=== PATIENT | male | born 1960 | race African-American/Black ===

== ENCOUNTER 2020-10-31 08:23 | Emergency (ER) | payer SELFPAY ==
[~2020-10-31] VITALS: Ht 185.4 cm; Wt 147.2 kg
[2020-10-31] MEDS ORDERED: IV NORMAL SALINE 1,000ML 1,000 ML IV ONE (08:45)
[2020-10-31] MEDS ORDERED: LOSARTAN 25 MG TABLET. PO STA (08:45)
--- NOTE | 2020-10-31 08:50 | PHYS DOC ---
General Adult EDM: Chief Complaint: HYPERTENSION HPI: HPI: 60-year-old male presents with elevated blood pressure. Patient has had hypertension for some time. He is on multiple medications. He has been taking his medications as prescribed. He tells me that for the last couple weeks he has noticed his blood pressure being higher. He has had some episodes in the upper 180s over 105. He occasionally gets headache when it is that high. He describes it as a pressure or throbbing. His current blood pressure 165/99. He cannot get into his primary care physician to the first of the month and he does not want to let his blood pressure stay this high. Patient tells me that he has been eating and drinking normally. He is on a diet and is not believe he has a lot of sodium intake. Does not drink very much caffeine. He has had increased stress lately with a recent divorce. He further reports decreased urination despite being on hydrochlorothiazide. Denies fever or chills. He has no other complaints at this time. Review of Systems: Review of Systems: Constitutional: Denies fever or chills Eyes: Denies change in visual acuity HENT: Denies nasal congestion or sore throat Respiratory: Denies cough or shortness of breath Cardiovascular: Elevated blood pressure. Denies chest pain or edema GI: Denies abdominal pain, nausea, vomiting, bloody stools or diarrhea : Denies dysuria Musculoskeletal: Denies back pain or joint pain Integument: Denies rash Neurologic: Headache. Denies focal weakness or sensory changes Endocrine: Denies polyuria or polydipsia Lymphatic: Denies swollen glands Psychiatric: Denies depression or anxiety Physical Exam: PE: Constitutional: Well developed, well nourished, morbidly obese, no acute distress, non-toxic appearance. [] HENT: Normocephalic, atraumatic, bilateral external ears normal, oropharynx moist, no oral exudates, nose normal. [] Eyes: PERRLA, EOMI, conjunctiva normal, no discharge. [] Neck: Normal range of motion, no tenderness, supple, no stridor. [] Cardiovascular: Heart rate 64, regular rhythm, no murmur [] Lungs & Thorax: Bilateral breath sounds clear to auscultation [] Abdomen: Bowel sounds normal, soft, no tenderness, no masses, no pulsatile masses. [] Skin: Warm, dry, no erythema, no rash. [] Back: No tenderness, no CVA tenderness. [] Extremities: No tenderness, no cyanosis, no clubbing, ROM intact, no edema. [] Neurologic: Alert and oriented X 3, normal motor function, normal sensory function, no focal deficits noted. [] Psychologic: Affect normal, judgement normal, mood concerned. [] EKG: EKG: Sinus rhythm, rate 64, normal axis, no ST elevations or depressions. [] Radiology/Procedures: Radiology/Procedures: [] Impressions: EXAM: Chest, single view. HISTORY: Hypertension. COMPARISON: None. FINDINGS: A frontal view of the chest obtained. There is no infiltrate, pleural effusion or pneumothorax. The heart is normal in size. There is suspected right infrahilar atelectasis or scarring. IMPRESSION: No acute pulmonary finding. Electronically signed by: Sofía Tom MD (10/31/2020 9:12 AM) [id number] DICTATED AND SIGNED BY: SOFÍA TOM MD DATE: 10/31/20910 CC: AIYANA LYNN DO; NEELAM TIDWELL CO ~MTH0 0 Heart Score: C/O Chest Pain: No Risk Factors: Risk Factors: DM, Current or recent (<one month) smoker, HTN, HLP, family hist ory of CAD, obesity. Risk Scores: Score 0 - 3: 2.5% MACE over next 6 weeks - Discharge Home Score 4 - 6: 20.3% MACE over next 6 weeks - Admit for Clinical Observation Score 7 - 10: 72.7% MACE over next 6 weeks - Early Invasive Strategies Course & Med Decision Making: Course & Med Decision Making Pertinent Labs and Imaging studies reviewed. (See chart for details) The patient's labs are unremarkable. His chest x-ray is negative for acute findings. His urine is trace protein, but no other abnormalities. I believe this is just the patient's blood pressure being out of control. I do not see a new cause. We have given him a second dose of losartan in the ED. This was followed by 0.2 of clonidine and finally 10 of hydralazine. Hydralazine seems to have pressure a bit. Since he cannot get into his primary doctor for least the next week, I will discharge him with a prescription for hydralazine 10 mg 3 times daily as needed. He is stable for discharge at this time. [] Robertoon Disclaimer: Jami Disclaimer: This electronic medical record was generated, in whole or in part, using a voice recognition dictation system. Departure Departure: Impression: Primary Impression: Hypertension Qualified Codes: I10 - Essential (primary) hypertension Disposition: HOME / SELF CARE / HOMELESS Condition: STABLE Referrals: NEELAM TIDWELL (PCP) Patient Instructions: Hypertension, [id number] Scripts Hydralazine Hcl (HYDRALAZINE HCL) 10 Mg Tablet 1 TAB PO TID PRN for ELEVATED BP, SEE COMMENTS, #30 TAB 3 Refills for BP greater than 160/90 Prov: AIYANA LYNN DO 10/31/20 AIYANA LYNN DO October 31, 2020 08:50
[2020-10-31 09:10] LABS: BASO # 0.1 x10^3/uL (0.0-0.2); BASO % 2 % (0-3); EOS # 0.4 x10^3/uL (0.0-0.7); EOS % 7 % (0-3); HEMATOCRIT 48.1 % (39.0-53.0); LYMPH % 39 % (24-48); MEAN CORPUSCULAR HEMOGLOBIN 32 pg (25-35); MEAN CORPUSCULAR HGB CONC 33 g/dL (31-37); MEAN CORPUSCULAR VOLUME 94 fL (79-100); MONO # 0.5 x10^3/uL (0.0-1.1); MONO % 9 % (0-9); NEUT # 2.2 x10^3uL (1.8-7.7); NEUT % 43 % (31-73); PLATELET COUNT 211 x10^3/uL (140-400); RED BLOOD COUNT 5.09 x10^6/uL (4.30-5.70); RED CELL DISTRIBUTION WIDTH 16.9 % (11.5-14.5); WHITE BLOOD COUNT 5.2 x10^3/uL (4.0-11.0)
--- NOTE | 2020-10-31 09:14 | RAD ---
EXAM: Chest, single view. HISTORY: Hypertension. COMPARISON: None. FINDINGS: A frontal view of the chest obtained. There is no infiltrate, pleural effusion or pneumotho rax. The heart is normal in size. There is suspected right infrahilar atelectasis or scarring. IMPRESSION: No acute pulmonary finding. Electronically signed by: Sofía Tom MD (10/31/2020 9:12 AM) [id number]
[2020-10-31 09:57] LABS: BILIRUBIN,URINE NEG (NEG); CLARITY,URINE CLEAR; COLOR,URINE YELLOW; GLUCOSE,URINE NEG (NEG); NITRITE,URINE NEG (NEG)
[2020-10-31 10:04] LABS: BACTERIA,URINE 0 /HPF (0-FEW); WBC,URINE OCC /HPF (0-4)
[2020-10-31 10:05] LABS: HYALINE CASTS, URINE OCC /HPF; SQUAMOUS EPITHELIAL CELL,UR FEW /LPF
[2020-10-31] MEDS ORDERED: cloNIDine HCL 0.1 MG TABLET ONE (10:13)
[2020-10-31 10:15] LABS: HEMOGLOBIN ISTAT 17.7 gm/dL; POTASSIUM ISTAT 4.2 mmol/L (3.5-5.0)
[2020-10-31] MEDS ORDERED: cloNIDine HCL 0.1 MG TABLET PO ONE (10:15)
[2020-10-31] MEDS ORDERED: hydrALAZINE 20 MG/ML VIAL. IV ONE (11:15)
[2020-10-31] MEDS ORDERED: HYDR-2867 PO (11:50)
[2020-10-31 11:57] VITALS: BP 160/72
--- NOTE | 2020-10-31 13:36 | EKG ---
[address] [address] Test Date: 2020-10-31 Test Time: 08:34:13 Pat Name: HAILEY GUNTER Department: Room: Gender: M Clinical Social Worker: LACIE : 1960 Requested By: AIYANA LYNN Order Number: [id number] Reading MD: Ray Doe MD Measurements Intervals [place] Rate: 64 P: 39 TN: 158 QRS: 15 QRSD: 76 T: -29 QT: 402 QTc: 414 Interpretive Statements SINUS RHYTHM Electronically Signed On 10-31-2020 13:36:15 CDT by Ray Doe MD
== END 2020-10-31 12:06 | disposition home or self-care (01) ==
LOC: ER 08:23
DX: I10 Essential (primary) hypertension (principal)
CPT/HCPCS: 36415; 71045; 80047; 81001; 84484; 85025; 93005; 96361; 96374; 99285; J0360; J7030

== ENCOUNTER 2021-05-29 12:31 | Inpatient (IN) | payer OTHER ==
[~2021-05-29] VITALS: Ht 185.4 cm; Wt 149.0 kg
[~2021-05-29 12:31] MED LIST: HYDR-2867 PO
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
[2021-05-29] MEDS ORDERED: ASPIRIN CHEWABLE 81 MG TABLET. PO ONE (13:00)
[2021-05-29] MEDS ORDERED: NITROGLYCERIN SUBLINGUAL 0.4 MG BOTTLE OF 25. SL PRN (13:00)
--- NOTE | 2021-05-29 13:05 | EKG ---
[address] [address] Test Date: 2021-05-29 Test Time: 12:38:54 Pat Name: HAILEY GUNTER Department: Room: Gender: M Community Service Director: LACIE : 1960 Requested By: ROJELIO GRIFFIN Order Number: [id number] Reading MD: Ray Doe MD Measurements Intervals [place] Rate: 87 P: 180 AR: 92 QRS: 13 QRSD: 72 T: 16 QT: 334 QTc: 402 Interpretive Statements SINUS RHYTHM Electronically Signed On 06-05-2021 15:26:28 CHILD PSYCHIATRIST by Ray Doe MD
[2021-05-29 13:22] LABS: BASO # 0.1 x10^3/uL (0.0-0.2); BASO % 1 % (0-3); EOS # 0.2 x10^3/uL (0.0-0.7); EOS % 4 % (0-3); HEMATOCRIT 46.4 % (39.0-53.0); HEMOGLOBIN 15.2 g/dL (13.0-17.5); LYMPH # 2.1 x10^3/uL (1.0-4.8); LYMPH % 32 % (24-48); MEAN CORPUSCULAR HEMOGLOBIN 31 pg (25-35); MEAN CORPUSCULAR HGB CONC 33 g/dL (31-37); MEAN CORPUSCULAR VOLUME 94 fL (79-100); MONO # 0.6 x10^3/uL (0.0-1.1); MONO % 9 % (0-9); NEUT # 3.7 x10^3uL (1.8-7.7); NEUT % 54 % (31-73); PLATELET COUNT 253 x10^3/uL (140-400); RED BLOOD COUNT 4.93 x10^6/uL (4.30-5.70); RED CELL DISTRIBUTION WIDTH 16.3 % (11.5-14.5); WHITE BLOOD COUNT 6.7 x10^3/uL (4.0-11.0)
[2021-05-29 13:34] LABS: CALCIUM 9.8 mg/dL (8.5-10.1); CREATININE 0.9 mg/dL (0.7-1.3); GFR 103.1; POTASSIUM 4.5 mmol/L (3.5-5.1)
[2021-05-29 13:40] LABS: ALBUMIN 3.8 g/dL (3.4-5.0); ALBUMIN/GLOBULIN RATIO 1.1 (1.0-1.7); TOTAL BILIRUBIN 0.3 mg/dL (0.2-1.0); TOTAL PROTEIN 7.2 g/dL (6.4-8.2)
--- NOTE | 2021-05-29 13:42 | RAD ---
EXAM: Chest, single view. HISTORY: Chest pain. COMPARISON: 10/31/2020. FINDINGS: A frontal view of the chest is obtained. There is increased bilateral upper lobe interstiti al opacity. There is no consolidation, pleural effusion or pneumothorax. The heart is normal in size. IMPRESSION: Bilateral lower lobe interstitial infiltrate or chronic interstitial changes. Electronically signed by: Sofía Tom MD (05/29/2021 1:40 PM) [id number]
[2021-05-29] MEDS: IV NORMAL SALINE 1,000ML 1,000 ML IV SCH (14:00)
[2021-05-29] MEDS ORDERED: MORPHINE SULFATE 4 MG/ML DISP.SYRIN. IVP PRN (14:00)
[2021-05-29] MEDS ORDERED: AZITHROMYCIN 500 MG in IV NORMAL SALINE 250ML 250 ML IV ONE (14:00)
[2021-05-29] MEDS ORDERED: IV NORMAL SALINE 250ML 250 ML ONE (14:42)
[2021-05-29] MEDS ORDERED: cefTRIAXone SODIUM 1 GM VIAL ONE (14:42)
[2021-05-29] MEDS ORDERED: IV NORMAL SALINE 50ML 50 ML ONE (14:42)
[2021-05-29] MEDS ORDERED: AZITHROMYCIN 500 MG VIAL. IV ONE (14:42)
--- NOTE | 2021-05-29 14:57 | EKG ---
[address] [address] Test Date: 2021-05-29 Test Time: 14:46:57 Pat Name: HAILEY GUNTER Department: Room: Gender: M Front End Driver: LACIE : 1960 Requested By: ROJELIO GRIFFIN Order Number: [id number] Reading MD: Ray Doe MD Measurements Intervals [place] Rate: 77 P: 38 AR: 160 QRS: 10 QRSD: 72 T: 14 QT: 364 QTc: 414 Interpretive Statements SINUS RHYTHM Electronically Signed On 06-05-2021 15:24:55 FLOORWALKER by Ray Doe MD
--- NOTE | 2021-05-29 16:38 | HP ---
DATE OF SERVICE: 05/29/2021 ADMIT DATE: 05/29/2021 HISTORY OF PRESENT ILLNESS: The patient is a 61-year-old -Iranian male patient who presented to the Emergency Room with a complaint of left-sided chest pain that started 5 days ago. The patient describes the pain as an ache and rated about 7/10 in severity. The pain does not radiate, not alleviated or aggravated by anything, no treatment prior to arrival. He reports the pain started after he went to apply for a new job, had to have a physical with [employer]. He stated that during physical he had to lift a 50-pound weight over his head on the floor and he became short of breath and then started experiencing chest pain. He is still reporting shortness of breath at this time. On arrival, he denied any nausea, vomiting or dizziness. He does have a history of hypertension, for which he takes metoprolol and hydrochlorothiazide. He was extensively investigated in the Emergency Room and has had an EKG done, which showed he was in sinus rhythm at a rate of 87, corrected QT interval of 402, no ST-segment elevation. His chest x-ray showed that there is increased bilateral upper lobe interstitial opacity. There is no consolidation, pleural effusion, or pneumothorax. The heart is normal in size. LABORATORY DATA: His lab work showed a white cell count of 6700, hemoglobin 15, hematocrit 46, MCV 94 and platelet count of 253,000 with normal manual differential. Chemistry showed a serum sodium of 140, potassium 4.5, his chloride was 101, bicarbonate was 31, anion gap of 8, BUN 9, creatinine 0.9. Estimated GFR was 103 mL per minute. His glucose was 100, calcium was 9.8. Total bilirubin, AST, ALT, alkaline phosphatase were normal. Troponin I high sensitivity was 10. Total protein was 7.2, albumin was 3.8. ASSESSMENT AND PLAN: In summary, this is a 61-year-old -Iranian male patient who presented with atypical chest pain. He was also admitted with probably community-acquired pneumonia. He has multiple risk factors for coronary artery disease including hypertension, cigarettes and male gender. We will do two more sets of cardiac enzymes, we will check his fasting lipid profile, consult the account support specialist tomorrow and decide on further management accordingly. We will also continue with antibiotics. RYAN/ARV/GIO DR: Mariam TID: [id number]
[2021-05-29 22:30] VITALS: BP 159/94
[2021-05-29] MEDS ORDERED: ALBU2.5V8 IH (23:44)
[2021-05-29] MEDS ORDERED: HYDR12.572 PO (23:44)
[2021-05-29] MEDS ORDERED: METO-247 PO (23:44)
[2021-05-29] MEDS ORDERED: CLON1TAB PO (23:44)
[2021-05-30 04:58] VITALS: BP 139/85
[2021-05-30 06:27] LABS: BASO % 1 % (0-3); EOS # 0.2 x10^3/uL (0.0-0.7); EOS % 4 % (0-3); HEMATOCRIT 45.1 % (39.0-53.0); HEMOGLOBIN 14.9 g/dL (13.0-17.5); LYMPH # 2.6 x10^3/uL (1.0-4.8); LYMPH % 44 % (24-48); MEAN CORPUSCULAR HEMOGLOBIN 31 pg (25-35); MEAN CORPUSCULAR HGB CONC 33 g/dL (31-37); MEAN CORPUSCULAR VOLUME 95 fL (79-100); MONO # 0.5 x10^3/uL (0.0-1.1); MONO % 9 % (0-9); NEUT # 2.5 x10^3uL (1.8-7.7); NEUT % 42 % (31-73); PLATELET COUNT 206 x10^3/uL (140-400); RED BLOOD COUNT 4.75 x10^6/uL (4.30-5.70); RED CELL DISTRIBUTION WIDTH 15.8 % (11.5-14.5); WHITE BLOOD COUNT 5.9 x10^3/uL (4.0-11.0)
[2021-05-30 06:41] LABS: ALBUMIN 3.1 g/dL (3.4-5.0); CALCIUM 8.7 mg/dL (8.5-10.1); CREATININE 0.9 mg/dL (0.7-1.3); GFR 103.1; POTASSIUM 3.7 mmol/L (3.5-5.1); TOTAL BILIRUBIN 0.3 mg/dL (0.2-1.0); TOTAL PROTEIN 6.3 g/dL (6.4-8.2)
[2021-05-30] MEDS: IV NORMAL SALINE 1,000ML 1,000 ML IV SCH ×2 (07:57)
--- NOTE | 2021-05-30 08:59 | PDOC2 ---
JHONY NETTLES [place] 05/30/21 0859: CARDIAC CONSULT DATE OF CONSULT DOS: DATE: 05/30/21 TIME: 08:50 REASON FOR CONSULT Reason for Consult Chest pain REFERRING PHYSICIAN Referring Physician Dr. Duckworth SOURCE Source: Chart review, Patient HPI History of Present Illness This is a 61 yo male who presented secondary to chest pain. Patient reports undergoing agility test for job for which he applied. 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 Thinks he may have pulled a muscle in his left chest. Reports intermittent pain in his left chest. Is worse with certain movements. No associated dizziness, diaphoresis, or palpitations. Reports having stress test many years ago. No recent cardiac workup. AMI ruled out. PAST MEDICAL HISTORY Cardiovascular: HTN GI: GERD Psych: Anxiety PAST SURGICAL HISTORY Past Surgical History: No pertinent history FAMILY HISTORY Family History: Hypertension SOCIAL HISTORY Smoke: <1 pack per day ALCOHOL: none Drugs: None Lives: with Family CURRENT MEDICATIONS Current Medications Current Medications Aspirin (Aspirin Chewable) 324 mg 1X ONCE PO Last administered on 05/29/21at 13:11; Start 05/29/21 at 13:00; Stop 05/29/21 at 13:02; Status DC Nitroglycerin (Nitrostat) 0.4 mg PRN Q5MIN PRN SL CHEST PAIN Last administered on 05/29/21at 13:11; Start 05/29/21 at 13:00 Morphine Sulfate (Morphine 4mg Syringe) 4 mg PRN Q2HR PRN IVP PAIN; Start 05/29/21 at 14:00; Stop 05/30/21 at 13:59 Sodium Chloride 1,000 ml @ 100 mls/hr Q10H IV Last administered on 05/30/21at 07:57; Start 05/29/21 at 14:00; Stop 05/30/21 at 13:59 Ceftriaxone Sodium 1 gm/ Sodium Chloride 50 ml @ 100 mls/hr 1X ONCE IV Last administered on 05/29/21at 14:55; Start 05/29/21 at 14:00; Stop 05/29/21 at 14:29; Status DC Azithromycin 500 mg/Sodium Chloride 250 ml @ 250 mls/hr 1X ONCE IV Last administered on 05/29/21at 16:05; Start 05/29/21 at 14:00; Stop 05/29/21 at 14:59; Status DC Sodium Chloride 250 ml @ As Directed STK-MED ONCE .ROUTE ; Start 05/29/21 at 14:42; Stop 05/29/21 at 14:42; Status DC Sodium Chloride 50 ml @ As Directed STK-MED ONCE .ROUTE ; Start 05/29/21 at 14:42; Stop 05/29/21 at 14:42; Status DC Azithromycin (Zithromax) 500 mg STK-MED ONCE IV ; Start 05/29/21 at 14:42; Stop 05/29/21 at 14:42; Status DC Ceftriaxone Sodium (Rocephin) 1 gm STK-MED ONCE .ROUTE ; Start 05/29/21 at 14:42; Stop 05/29/21 at 14:42; Status DC Azithromycin 500 mg/Sodium Chloride 250 ml @ 250 mls/hr Q24H IV ; Start 05/30/21 at 16:00 Ceftriaxone Sodium 1 gm/ Sodium Chloride 50 ml @ 100 mls/hr Q24H IV ; Start 05/30/21 at 14:00 Lactobacillus Rhamnosus (Culturelle) 1 cap BID PO Last administered on 05/30/21at 07:52; Start 05/30/21 at 09:00 Active Scripts Active Reported Proair Hfa Inhaler (Albuterol Sulfate) 8.5 Gm Hfa.aer.ad 2 Puff IH PRN Q4-6HRS PRN 21 Days Klonopin (Clonazepam) 1 Mg Tablet 1 Tab PO PRN Q8HRS PRN Metoprolol Succinate ( Xl ) (Metoprolol Succinate) 100 Mg Tab.er.24h 1 Tab PO DAILY Hydrochlorothiazide Capsule (Hydrochlorothiazide) 12.5 Mg Capsule 25 Mg PO DAILY ALLERGIES Allergies: Coded Allergies: No Known Drug Allergies (Unverified , 10/31/20) ROS Review of Systems 14 point ROS conducted with pertinent positives noted above in hPI PHYSICAL EXAM General: Alert, Oriented X3, Cooperative, No acute distress HEENT: Atraumatic Lungs: Clear to auscultation Heart: Regular rate Abdomen: Soft, Other (obese) Extremities: No edema Neuro: Sensation intact Psych/Mental Status: Mood NL MUSCULOSKELETAL: Osteoarthritic changes both hands VITALS Vital Signs Vital Signs Date Time Temp Pulse Resp B/P (MAP) Pulse Ox O2 Delivery O2 Flow Rate FiO2 05/30/21 04:58 96.9 64 18 139/85 (103) 100 Room Air LABS LABS Laboratory Tests Test 05/29/21 13:07 05/29/21 14:33 05/29/21 15:26 05/29/21 18:58 White Blood Count 6.7 x10^3/uL (4.0-11.0) Red Blood Count 4.93 x10^6/uL (4.30-5.70) Hemoglobin 15.2 g/dL (13.0-17.5) Hematocrit 46.4 % (39.0-53.0) Mean Corpuscular Volume 94 fL (79-100) Mean Corpuscular Hemoglobin 31 pg (25-35) Mean Corpuscular Hemoglobin Concent 33 g/dL (31-37) Red Cell Distribution Width 16.3 % (11.5-14.5) Platelet Count 253 x10^3/uL (140-400) Neutrophils (%) (Auto) 54 % (31-73) Lymphocytes (%) (Auto) 32 % (24-48) Monocytes (%) (Auto) 9 % (0-9) Eosinophils (%) (Auto) 4 % (0-3) Basophils (%) (Auto) 1 % (0-3) Neutrophils # (Auto) 3.7 x10^3uL (1.8-7.7) Lymphocytes # (Auto) 2.1 x10^3/uL (1.0-4.8) Monocytes # (Auto) 0.6 x10^3/uL (0.0-1.1) Eosinophils # (Auto) 0.2 x10^3/uL (0.0-0.7) Basophils # (Auto) 0.1 x10^3/uL (0.0-0.2) Sodium Level 140 mmol/L (136-145) Potassium Level 4.5 mmol/L (3.5-5.1) Chloride Level 101 mmol/L (98-107) Carbon Dioxide Level 31 mmol/L (21-32) Anion Gap 8 (6-14) Blood Urea Nitrogen 9 mg/dL (8-26) Creatinine 0.9 mg/dL (0.7-1.3) Estimated GFR (Cockcroft-Gault) 103.1 BUN/Creatinine Ratio 10 (6-20) Glucose Level 100 mg/dL (70-99) Calcium Level 9.8 mg/dL (8.5-10.1) Total Bilirubin 0.3 mg/dL (0.2-1.0) Aspartate Amino Transf (AST/SGOT) 21 U/L (15-37) Alanine Aminotransferase (ALT/SGPT) 29 U/L (16-63) Alkaline Phosphatase 92 U/L (46-116) Troponin I High Sensitivity 10 ng/L (4-75) 7 ng/L (4-75) 7 ng/L (4-75) Total Protein 7.2 g/dL (6.4-8.2) Albumin 3.8 g/dL (3.4-5.0) Albumin/Globulin Ratio 1.1 (1.0-1.7) Coronavirus (COVID-19)(PCR) Not detected (NOT DETECTD) SARS-CoV-2 Antigen (Rapid) Negative (NEGATIVE) Test 05/30/21 05:59 White Blood Count 5.9 x10^3/uL (4.0-11.0) Red Blood Count 4.75 x10^6/uL (4.30-5.70) Hemoglobin 14.9 g/dL (13.0-17.5) Hematocrit 45.1 % (39.0-53.0) Mean Corpuscular Volume 95 fL (79-100) Mean Corpuscular Hemoglobin 31 pg (25-35) Mean Corpuscular Hemoglobin Concent 33 g/dL (31-37) Red Cell Distribution Width 15.8 % (11.5-14.5) Platelet Count 206 x10^3/uL (140-400) Neutrophils (%) (Auto) 42 % (31-73) Lymphocytes (%) (Auto) 44 % (24-48) Monocytes (%) (Auto) 9 % (0-9) Eosinophils (%) (Auto) 4 % (0-3) Basophils (%) (Auto) 1 % (0-3) Neutrophils # (Auto) 2.5 x10^3uL (1.8-7.7) Lymphocytes # (Auto) 2.6 x10^3/uL (1.0-4.8) Monocytes # (Auto) 0.5 x10^3/uL (0.0-1.1) Eosinophils # (Auto) 0.2 x10^3/uL (0.0-0.7) Basophils # (Auto) 0.0 x10^3/uL (0.0-0.2) Sodium Level 143 mmol/L (136-145) Potassium Level 3.7 mmol/L (3.5-5.1) Chloride Level 105 mmol/L (98-107) Carbon Dioxide Level 31 mmol/L (21-32) Anion Gap 7 (6-14) Blood Urea Nitrogen 12 mg/dL (8-26) Creatinine 0.9 mg/dL (0.7-1.3) Estimated GFR (Cockcroft-Gault) 103.1 BUN/Creatinine Ratio 13 (6-20) Glucose Level 95 mg/dL (70-99) Calcium Level 8.7 mg/dL (8.5-10.1) Total Bilirubin 0.3 mg/dL (0.2-1.0) Aspartate Amino Transf (AST/SGOT) 11 U/L (15-37) Alanine Aminotransferase (ALT/SGPT) 20 U/L (16-63) Alkaline Phosphatase 78 U/L (46-116) Total Protein 6.3 g/dL (6.4-8.2) Albumin 3.1 g/dL (3.4-5.0) Albumin/Globulin Ratio 1.0 (1.0-1.7) ASSESSMENT/PLAN Assessment/Plan 1. Chest pain, atypical. AMI ruled out. EKG without significant acute changes. Most probably MSK 2. Hypertension; controlled 3. Tobaccoism; discussed/encouraged cessatino Recommendations ASA Lipids Will arrange outpatient ischemic evaluation with stress test Follow up in our office as arranged DIANA BATES MD 05/31/21 0522: CARDIAC CONSULT ASSESSMENT/PLAN Assessment/Plan Patient seen and examined. Agree with EEO OFFICER's assessment and plan. CP with atypical features NE ruled out Plan echo and stress test as outpatient Thank you for your consultation JHONY NETTLES APRN May 30, 2021 08:59 DIANA BATES MD May 31, 2021 05:22
[2021-05-30] MEDS ORDERED: LACTOBACILLUS RHAMNOSUS GG 1 CAPSULE. PO SCH (09:00)
[2021-05-30] MEDS ORDERED: ASPIRIN ENTERIC COATED 81 MG TABLET.DR. PO SCH (09:00)
[2021-05-30 09:43] VITALS: BP 159/81
[2021-05-30] MEDS ORDERED: ALBUTEROL SULFATE 2.5 MG/3 ML NEBU. IH PRN (10:00)
[2021-05-30] MEDS ORDERED: clonazePAM 1 MG TABLET PO PRN (10:00)
[2021-05-30] MEDS ORDERED: METOPROLOL SUCC 24HR ER 50 MG TAB.ER.24H. PO SCH (10:15)
[2021-05-30] MEDS ORDERED: hydroCHLOROthiazide 12.5 MG CAPSULE PO SCH (10:15)
[2021-05-30 10:20] VITALS: BP 159/81
[2021-05-30] MEDS ORDERED: ASPI-889 PO (13:13)
[2021-05-30] MEDS ORDERED: AZIT250T PO (13:18)
[2021-05-30] MEDS ORDERED: CEFD300C PO (13:18)
--- NOTE | 2021-05-30 13:44 | DS ---
HOSPITAL COURSE: The patient is a 61-year-old male patient who came in yesterday complaining of left-sided chest pain. He was evaluated in the Emergency Room, has had lab work and EKG as well as chest x-ray. The EKG was unremarkable. He has 3 sets of cardiac enzymes that ruled out myocardial infarction, was treated with azithromycin and ceftriaxone for possible bilateral lower lobe interstitial infiltrate or chronic interstitial changes. He was seen by the Cardiology team and the plan is to discharge him home with arrangement for outpatient ischemic workup. PHYSICAL EXAMINATION: GENERAL: When I saw him this morning, he was resting slightly propped up in bed, in no apparent respiratory distress. No pallor, jaundice, cyanosis or thyromegaly. No jugular venous distention. No lower limb edema. VITAL SIGNS: His heart rate was 86, blood pressure is 159/81, temperature was 97.8, respiratory rate 20, and oxygen saturation was 93%. HEAD, EYES, EARS, NOSE AND THROAT: Normocephalic, atraumatic. NECK: Supple. HEART: Showed normal first and second heart sounds. No gallop, rub or murmur. CHEST: Showed central trachea, equal bilateral chest expansion, air entry. NEUROLOGIC: He was grossly intact. He was also discharged home on Zithromax and cefdinir for treatment of his community-acquired pneumonia. LABORATORY DATA: His lab work this morning showed a white cell count 5900, hemoglobin 15, hematocrit 45, MCV 95 and platelet count 206,000. His chemistry showed a serum sodium 143, potassium 3.7, chloride 105, bicarbonate 31, anion gap of 7, BUN 12, creatinine 0.9. Estimated GFR was 103 mL per minute. His glucose was 95, calcium was 8.7. Total bilirubin, AST, ALT, alkaline phosphatase were normal. Total protein 6.3, albumin 3.1. His 3 sets of cardiac enzyme have ruled out myocardial infarction. DISCHARGE MEDICATIONS: The patient was discharged home to continue on the following medications: Aspirin 81 mg once a day, azithromycin 250 mg once a day for 3 days, cefdinir 300 mg twice a day for 7 days. The patient to continue on albuterol sulfate for ProAir 2 puffs every 4-6 hours, clonazepam 1 mg every 8 hours as needed, hydrochlorothiazide 12.5 mg once a day, metoprolol succinate 100 mg once a day. FINAL DISCHARGE DIAGNOSES: Atypical chest pain, hypertension, morbid obesity, nicotine dependence. RYAN/LESLIE DR: Mariam TID: [id number]
[2021-05-30] MEDS ORDERED: AZITHROMYCIN 500 MG in IV NORMAL SALINE 250ML 250 ML IV SCH (16:00)
== END 2021-05-30 13:52 | disposition home or self-care (01) | DRG 391 ==
LOC: ER 12:31 → 1 SOUTH 13:54
PROVIDERS: ADMIT Internal Medicine; ATTEND Internal Medicine
DX: K21.9 Gastro-esophageal reflux disease without esophagitis (principal); J18.9 Pneumonia, unspecified organism; E66.01 Morbid (severe) obesity due to excess calories; F17.210 Nicotine dependence, cigarettes, uncomplicated; I10 Essential (primary) hypertension; F41.9 Anxiety disorder, unspecified; Z20.822 Contact with and (suspected) exposure to COVID-19; Z82.49 Family history of ischemic heart disease and other diseases of the circulatory system
CPT/HCPCS: 36415; 71045; 80053; 80061; 84484; 85025; 87426; 93005; 96365; 96367; J0456; J0696; J7050; U0003; 99285-25; J7030

== ENCOUNTER 2021-09-10 14:44 | Emergency (ER) | payer OTHER, BC ==
[~2021-09-10] VITALS: Ht 185.4 cm; Wt 145.5 kg
[~2021-09-10 14:44] MED LIST changes: +ALBU2.5V8 IH; +ASPI-889 PO; +AZIT250T PO; +CEFD300C PO; +CLON1TAB PO; +HYDR12.572 PO; +METO-247 PO
[2021-09-10 15:00] VITALS: BP 181/108
[2021-09-10] MEDS ORDERED: KETOROLAC 15 MG/ML VIAL. IVP ONE (15:45)
--- NOTE | 2021-09-10 16:14 | RAD ---
Abdominal and Pelvis CT, Without Contrast: History: Reason: flank pain / Spl. Instructions: / History: Comparison: None. Procedure: Axial images are obtained of the abdomen and pelvis, without IV or oral contrast. Oral Contrast: No Findings: Evaluation of solid organs is limited without contrast. The appendix is normal. The gallbladder is not fully distended but appears normal. There is a small fat-containing periumbilical hernia. The prostate is mildly enlarged. Liver: Normal. Spleen: Normal. Pancreas: Normal. Adrenal Glands: Normal. Kidneys: Normal. There is no free air or free fluid. There is no lymphadenopathy. The urinary bladder appears normal. There is no pericolonic inflammation identified. Impression: No acute findings. End impression PQRS Compliance Statement: One or more of the following individualized dose reduction techniques were utilized for this examinat ion: 1. Automated exposure control 2. Adjustment of the mA and/or kV according to patient size 3. Use of iterative reconstruction technique Electronically signed by: Gallo Espinal III, MD (09/10/2021 4:11 PM) [facility]
[2021-09-10 16:22] LABS: BACTERIA,URINE 0 /HPF (0-FEW); CLARITY,URINE CLEAR; COLOR,URINE YELLOW; GLUCOSE,URINE NEG (NEG); NITRITE,URINE NEG (NEG); RBC,URINE 0 /HPF (0-2); UROBILINOGEN,URINE 0.2 mg/dL (0.2 mg/dL); WBC,URINE 0 /HPF (0-4)
[2021-09-10] MEDS ORDERED: HYDROcodone/APAP 7.5/325MG 1 TAB TABLET PO ONE (16:45)
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
== END 2021-09-10 16:56 | disposition home or self-care (01) ==
LOC: ER 14:44
DX: R10.31 Right lower quadrant pain (principal); R11.0 Nausea; I10 Essential (primary) hypertension
CPT/HCPCS: 74176; 81001; 96374; 99284; J1885